=== PATIENT | female | born 1965 | race African-American/Black ===

== ENCOUNTER 2017-09-14 14:21 | Inpatient (IN) | payer OTHER ==
[2017-09-14 14:51] LABS: URINE HCG POC HCG NEGATIVE (Negative)
[2017-09-14 15:33] LABS: BASO # 0.1 x10^3/uL (0.0-0.2); BASO % 1 % (0-3); EOS % 0 % (0-3); HEMATOCRIT 39.9 % (36.0-47.0); HEMOGLOBIN 12.9 g/dL (12.0-15.5); LYMPH # 1.3 x10^3/uL (1.0-4.8); LYMPH % 9 % (24-48); MEAN CORPUSCULAR HEMOGLOBIN 25 pg (25-35); MEAN CORPUSCULAR HGB CONC 32 g/dL (31-37); MEAN CORPUSCULAR VOLUME 78 fL (79-100); MONO # 0.3 x10^3/uL (0.0-1.1); MONO % 2 % (0-9); NEUT # 11.9 x10^3uL (1.8-7.7); NEUT % 88 % (31-73); PLATELET COUNT 380 x10^3/uL (140-400); RED CELL DISTRIBUTION WIDTH 15.1 % (11.5-14.5); WHITE BLOOD COUNT 13.6 x10^3/uL (4.0-11.0)
[2017-09-14] MEDS: ONDANSETRON PF 4 MG/2 ML VIAL. IV (15:34)
[2017-09-14] MEDS: IV NORMAL SALINE 1000ML BAG 1,000 ML IV (15:34)
[2017-09-14] MEDS: fentaNYL PF VIAL 100 MCG/2 ML VIAL IV (15:35)
[2017-09-14 15:37] LABS: BILIRUBIN,URINE NEGATIVE (NEG); GLUCOSE,URINE NEGATIVE (NEG); NITRITE,URINE NEGATIVE (NEG); PROTEIN,URINE NEGATIVE (NEG-TRACE); UROBILINOGEN,URINE 0.2 mg/dL (0.2 mg/dL)
[2017-09-14 15:39] LABS: ADD MAN DIFF? YES
[2017-09-14 15:44] LABS: CLARITY,URINE CLEAR; COLOR,URINE STRAW
[2017-09-14 15:46] LABS: BACTERIA,URINE FEW /HPF (0-FEW); RBC,URINE 0 /HPF (0-2); SQUAMOUS EPITHELIAL CELL,UR FEW /LPF; WBC,URINE RARE /HPF (0-4)
[2017-09-14 15:49] LABS: BARBITURATES NEG (NEG); BENZODIAZEPINES NEG (NEG); CANNABINOIDS POS (NEG); COCAINE NEG (NEG); METHADONE NEG (NEG); OPIATES NEG (NEG); PHENCYCLIDINE NEG (NEG)
[2017-09-14 15:55] LABS: AMPHETAMINE/METHAMPHETAMINE NEG (NEG); ETHANOL, URINE NEG (NEG)
[2017-09-14 16:15] LABS: % LYMPHS 13 % (24-48); % SEGS 87 % (35-66)
[2017-09-14 16:16] LABS: PLT ESTIMATE ADEQUATE (ADEQUATE); TOXIC GRANULATION SLIGHT; TOXIC VACUOLATION SLIGHT
[2017-09-14 16:46] LABS: ETHANOL < 10 mg/dL (0-10)
[2017-09-14 16:46] LABS: ANION GAP 12 (6-14); BLOOD UREA NITROGEN 12 mg/dL (7-20); BUN/CREATININE RATIO 15 (6-20); CALCIUM 9.4 mg/dL (8.5-10.1); CARBON DIOXIDE 24 mmol/L (21-32); CHLORIDE 101 mmol/L (98-107); CREATININE 0.8 mg/dL (0.6-1.0); GFR 92.2; GLUCOSE 131 mg/dL (70-99); POTASSIUM 3.9 mmol/L (3.5-5.1); SODIUM 137 mmol/L (136-145)
[2017-09-14 16:52] LABS: ALK PHOS 74 U/L (46-116); ALT (SGPT) 26 U/L (14-59); AST (SGOT) 19 U/L (15-37); LIPASE 65 U/L (73-393); MAGNESIUM 1.6 mg/dL (1.8-2.4); TOTAL BILIRUBIN 0.4 mg/dL (0.2-1.0)
[2017-09-14] MEDS: IOHEXOL 300 MG/ML 100ML VIAL. IV (16:59)
[2017-09-14] MEDS ORDERED: fentaNYL PF VIAL 100 MCG/2 ML VIAL IV (17:45)
[2017-09-14] MEDS ORDERED: ONDANSETRON PF 4 MG/2 ML VIAL. IV (17:45)
[2017-09-14] MEDS: MAGNESIUM OXIDE 400 MG TABLET PO (17:48)
[2017-09-14] MEDS: HALOPERIDOL LACTATE 5 MG/ML VIAL. IVP (17:48)
[2017-09-14] MEDS ORDERED: INFLUENZA VAX SCREEN BY RX. MC (21:00)
[2017-09-14] MEDS: ACETAMINOPHEN 500 MG TABLET PO (22:00)
[2017-09-14] MEDS: cefTRIAXone IV Push 1 GM VIAL. IVP (22:00)
[2017-09-14] MEDS: MAGNESIUM SULFATE 2GM 50 ML IV (23:32)
[2017-09-15] MEDS: ACETAMINOPHEN 325 MG TABLET. PO (05:15)
[2017-09-15 06:05] LABS: ADD MAN DIFF? NO
[2017-09-15 06:13] LABS: BASO # 0.1 x10^3/uL (0.0-0.2); BASO % 1 % (0-3); EOS % 0 % (0-3); HEMATOCRIT 36.9 % (36.0-47.0); HEMOGLOBIN 12.1 g/dL (12.0-15.5); LYMPH # 3.1 x10^3/uL (1.0-4.8); LYMPH % 31 % (24-48); MEAN CORPUSCULAR HEMOGLOBIN 26 pg (25-35); MEAN CORPUSCULAR HGB CONC 33 g/dL (31-37); MEAN CORPUSCULAR VOLUME 78 fL (79-100); MONO # 0.8 x10^3/uL (0.0-1.1); MONO % 8 % (0-9); NEUT % 60 % (31-73); PLATELET COUNT 347 x10^3/uL (140-400); RED BLOOD COUNT 4.74 x10^6/uL (3.50-5.40); RED CELL DISTRIBUTION WIDTH 15.1 % (11.5-14.5); WHITE BLOOD COUNT 10.1 x10^3/uL (4.0-11.0)
[2017-09-15 06:47] LABS: ANION GAP 10 (6-14); BLOOD UREA NITROGEN 12 mg/dL (7-20); CALCIUM 8.8 mg/dL (8.5-10.1); CARBON DIOXIDE 24 mmol/L (21-32); CHLORIDE 103 mmol/L (98-107); CREATININE 0.9 mg/dL (0.6-1.0); GFR 80.5; GLUCOSE 103 mg/dL (70-99); POTASSIUM 3.5 mmol/L (3.5-5.1); SODIUM 137 mmol/L (136-145)
[2017-09-15] MEDS: PANTOPRAZOLE 40 MG TABLET.DR. PO (12:20)
[2017-09-15] MEDS: LACTOBACILLUS RHAMNOSUS GG 1 CAPSULE. PO (21:00)
[2017-09-16] MEDS: cefTRIAXone IV Push 1 GM VIAL. IVP (02:31)
[2017-09-16] MEDS: ACETAMINOPHEN 325 MG TABLET. PO ×2 (02:46→12:30)
[2017-09-16 03:21] LABS: C DIFF BY PCR Negative (Negative)
[2017-09-16] MEDS: PANTOPRAZOLE 40 MG TABLET.DR. PO (08:26)
[2017-09-16] MEDS: LACTOBACILLUS RHAMNOSUS GG 1 CAPSULE. PO (08:26)
[2017-09-16 08:33] LABS: % SAT IRON 25 % (15-34); IRON,SERUM 64 ug/dL (50-170)
[2017-09-16] MEDS: FLU VACC QS2017-18 (36MOS+)/PF 0.5 ML SYRINGE. VAX IM (12:59)
== END 2017-09-16 16:15 | disposition home or self-care (01) | DRG 872 ==
LOC: ER 14:21 → 5 SOUTH 17:46
PROVIDERS: Internal Medicine
DX: A41.9 Sepsis, unspecified organism (principal); E83.42 Hypomagnesemia; K52.9 Noninfective gastroenteritis and colitis, unspecified; F17.210 Nicotine dependence, cigarettes, uncomplicated; K31.84 Gastroparesis; F12.90 Cannabis use, unspecified, uncomplicated; N28.9 Disorder of kidney and ureter, unspecified; Z90.49 Acquired absence of other specified parts of digestive tract
CPT/HCPCS: 36415; 74177; 80048; 80053; 80307; 81001; 81025; 83540; 83550; 83690; 83735; 85007; 85025; 87040; 87205; 87324; 90686; 96361; 96374; 96375; 99285-25; G0480; J0696; J1630; J2405; J3010; J3475; J3490; J7030; Q9967

== ENCOUNTER 2017-11-13 22:59 | Observation (INO) | payer OTHER ==
[2017-11-13 23:30] LABS: ADD MAN DIFF? NO
[2017-11-13 23:31] LABS: BASO # 0.2 x10^3/uL (0.0-0.2); BASO % 1 % (0-3); EOS # 0.1 x10^3/uL (0.0-0.7); EOS % 1 % (0-3); HEMATOCRIT 38.2 % (36.0-47.0); HEMOGLOBIN 12.8 g/dL (12.0-15.5); LYMPH # 1.7 x10^3/uL (1.0-4.8); LYMPH % 13 % (24-48); MEAN CORPUSCULAR HEMOGLOBIN 26 pg (25-35); MEAN CORPUSCULAR HGB CONC 34 g/dL (31-37); MEAN CORPUSCULAR VOLUME 77 fL (79-100); MONO # 0.7 x10^3/uL (0.0-1.1); MONO % 5 % (0-9); NEUT # 10.6 x10^3uL (1.8-7.7); NEUT % 80 % (31-73); PLATELET COUNT 367 x10^3/uL (140-400); RED BLOOD COUNT 4.96 x10^6/uL (3.50-5.40); RED CELL DISTRIBUTION WIDTH 14.9 % (11.5-14.5); WHITE BLOOD COUNT 13.3 x10^3/uL (4.0-11.0)
[2017-11-13 23:37] LABS: BILIRUBIN,URINE NEGATIVE (NEG); CLARITY,URINE CLEAR; COLOR,URINE YELLOW; GLUCOSE,URINE NEGATIVE (NEG); NITRITE,URINE NEGATIVE (NEG); PROTEIN,URINE NEGATIVE (NEG-TRACE); UROBILINOGEN,URINE 0.2 mg/dL (0.2 mg/dL)
[2017-11-13 23:40] LABS: BACTERIA,URINE 0 /HPF (0-FEW); RBC,URINE 0 /HPF (0-2); WBC,URINE 0 /HPF (0-4)
[2017-11-13 23:41] LABS: SQUAMOUS EPITHELIAL CELL,UR MOD /LPF
[2017-11-13] MEDS: ONDANSETRON PF 4 MG/2 ML VIAL. IV (23:45)
[2017-11-14 00:08] LABS: ANION GAP 13 (6-14); BLOOD UREA NITROGEN 21 mg/dL (7-20); BUN/CREATININE RATIO 21 (6-20); CALCIUM 9.8 mg/dL (8.5-10.1); CARBON DIOXIDE 23 mmol/L (21-32); CHLORIDE 101 mmol/L (98-107); GLUCOSE 156 mg/dL (70-99); POTASSIUM 3.7 mmol/L (3.5-5.1); SODIUM 137 mmol/L (136-145)
[2017-11-14] MEDS ORDERED: MORPHINE SULFATE 4 MG/ML DISP.SYRIN. (00:10)
[2017-11-14 00:15] LABS: ALBUMIN 4.1 g/dL (3.4-5.0); ALK PHOS 80 U/L (46-116); ALT (SGPT) 25 U/L (14-59); AST (SGOT) 14 U/L (15-37); LIPASE 102 U/L (73-393); TOTAL BILIRUBIN 0.6 mg/dL (0.2-1.0); TOTAL PROTEIN 8.3 g/dL (6.4-8.2)
[2017-11-14] MEDS: MORPHINE SULFATE 4 MG/ML DISP.SYRIN. IV ×5 (00:18→13:04)
[2017-11-14] MEDS ORDERED: CONTRAST GIVEN. MC (00:30)
[2017-11-14 00:32] LABS: TROPONINI < 0.017 ng/mL (0.000-0.055)
[2017-11-14] MEDS: IOHEXOL 300 MG/ML 100ML VIAL. IV (00:52)
[2017-11-14] MEDS ORDERED: ONDANSETRON PF 4 MG/2 ML VIAL. IV ×2 (02:15→09:00)
[2017-11-14] MEDS: PIPERACILLIN/TAZOBACTAM 4.5 GM in IV NORMAL SALINE 100ML 100 ML IV (02:15)
[2017-11-14] MEDS: IV NORMAL SALINE 1000ML BAG 1,000 ML IV ×2 (03:57→16:58)
[2017-11-14] MEDS: PROCHLORPERAZINE 10 MG/2 ML VIAL. IV (04:37)
[2017-11-14] MEDS ORDERED: fentaNYL PF VIAL 100 MCG/2 ML VIAL (08:41)
[2017-11-14] MEDS ORDERED: ROCURONIUM 50 MG/5 ML VIAL. (08:41)
[2017-11-14] MEDS: IV RINGERS,LACTATED 1000ML 1,000 ML IV (08:51)
[2017-11-14] MEDS ORDERED: LIDOCAINE 1% PF 2 ML VIAL. ID (09:00)
[2017-11-14] MEDS ORDERED: PROCHLORPERAZINE 10 MG/2 ML VIAL. IV (09:00)
[2017-11-14] MEDS ORDERED: fentaNYL PF VIAL 100 MCG/2 ML VIAL IV (09:00)
[2017-11-14] MEDS ORDERED: MORPHINE SULFATE 4 MG/ML DISP.SYRIN. IV (09:00)
[2017-11-14] MEDS: BUPIVACAINE-EPI 0.25%-1:200000 50 ML VIAL. (09:35)
[2017-11-14] MEDS ORDERED: LIDOCAINE 2% PF Vial for OR 5 ML VIAL. (09:57)
[2017-11-14] MEDS ORDERED: ONDANSETRON PF 4 MG/2 ML VIAL. (09:57)
[2017-11-14] MEDS ORDERED: PROPOFOL 20 ML IV (09:57)
[2017-11-14] MEDS ORDERED: DEXAMETHASONE SOD PHOS 20 MG/5 ML VIAL. (09:57)
[2017-11-14] MEDS ORDERED: SEVOFLURANE 31 TO 60 MINUTES. IH (09:57)
[2017-11-14] MEDS ORDERED: NEOSTIGMINE METHYLSULFATE 5 MG/5 ML SYRINGE. (09:58)
[2017-11-14] MEDS ORDERED: GLYCOPYRROLATE 1 MG/5 ML VIAL. (09:58)
[2017-11-14] MEDS: fentaNYL PF VIAL 100 MCG/2 ML VIAL IV ×5 (10:14→12:14)
[2017-11-14] MEDS ORDERED: oxyCODONE/APAP 5/325 1 TAB TABLET PO (10:30)
[2017-11-14] MEDS: KETOROLAC 15 MG/ML VIAL. IV ×2 (11:52→18:22)
[2017-11-14] MEDS: oxyCODONE/APAP 5/325 1 TAB TABLET PO (19:31)
[2017-11-15] MEDS: PANTOPRAZOLE 40 MG TABLET.DR. PO ×2 (00:12→07:35)
[2017-11-15] MEDS: KETOROLAC 15 MG/ML VIAL. IV ×3 (00:14→11:38)
[2017-11-15] MEDS: IV NORMAL SALINE 1000ML BAG 1,000 ML IV (00:15)
== END 2017-11-15 15:45 | disposition home or self-care (01) ==
LOC: ER 22:59 → 5 NORTH 11-14 01:56
DX: K35.80 Unspecified acute appendicitis (principal); F12.90 Cannabis use, unspecified, uncomplicated; Z90.49 Acquired absence of other specified parts of digestive tract; Z98.51 Tubal ligation status
CPT/HCPCS: 36415; 74177; 80053; 81001; 83690; 84484; 85025; 88304; 93005; 96365; 96375; 96376; 99285-25; 99406; G0378; G0379; J0780; J1100; J1885; J2001; J2270; J2405; J2543; J2704; J2710; J3010; J3490; J7030; J7120; Q9967